=== PATIENT | female | born 1985 | race American Indian/Alaskan Native ===

== ENCOUNTER 2017-03-03 12:53 | Emergency (ER) | payer OTHER ==
[2017-03-03 13:15] VITALS: O2SAT 98
--- NOTE | 2017-03-03 14:36 | C.PDOC ---
History Of Present Illness A 31 year old female presents to the emergency room with complaints of a sore throat and slight dry cough for 2 days. Patient has not taken anything for the symptoms and reports that she may have contracted it from daughter who was sick a few days ago. Patient denies any fever, chills, nausea, vomiting, diarrhea, or any other complaints. Time Seen by Provider: 03/03/17 13:52 Chief Complaint (Nursing): ENT Problem History Per: Patient History/Exam Limitations: no limitations Onset/Duration Of Symptoms: Days (2) Current Symptoms Are (Timing): Still Present Associated Symptoms: Sore Throat, Cough. denies: Fever, Chills, Nausea, Vomiting Ear Symptoms: Bilateral: None Severity: Mild Recent travel outside of the [place]: No Past Medical History Reviewed: Historical Data, Nursing Documentation, Vital Signs Vital Signs: Last Vital Signs Temp 98 F 03/03/17 15:11 Pulse 90 03/03/17 15:11 Resp 20 03/03/17 15:11 BP 140/80 03/03/17 15:11 Pulse Ox 98 03/03/17 14:47 - Medical History PMH: Bronchitis - [facility] Procedures APPLICATION OF SPLINT (08/27/14) TETANUS TOXOID ADMINIST (08/27/14) Family History: States: Unknown Family Hx - Social History Hx Tobacco Use: Yes Hx Alcohol Use: No Hx Substance Use: No - Immunization History Hx Influenza Vaccination: Yes Review Of Systems Constitutional: Negative for: Fever, Chills ENT: Positive for: Throat Pain (Sore throat) Respiratory: Positive for: Cough (Dry cough). Negative for: Shortness of Breath Gastrointestinal: Negative for: Nausea, Vomiting, Diarrhea Physical Exam - Physical Exam Appears: Well, Non-toxic, No Acute Distress Skin: Normal Color, Warm, Dry, No Rash Head: Atraumatic, Normacephalic Eye(s): bilateral: PERRL, EOMI Ear(s): Bilateral: Normal Oral Mucosa: Moist Throat: No Erythema, No Exudate Neck: Normal ROM, No Midline Cervical Tenderness, No Paracervical Tenderness, Supple Cardiovascular: Rhythm Regular Respiratory: Normal Breath Sounds, No Rales, No Rhonchi, No Wheezing Gastrointestinal/Abdominal: Soft, No Tenderness Extremity: Normal ROM, No Tenderness Neurological/Psych: Oriented x3, Normal Speech ED Course And Treatment O2 Sat by Pulse Oximetry: 98 Progress Note: Patient given prescription for medications and instructed to follow up with clinic/PMD within 1-2 days. Disposition Counseled Patient/Family Regarding: Diagnosis, Need For Followup - Disposition Disposition: HOME/ ROUTINE Disposition Time: 14:32 Condition: GOOD Instructions: Pharyngitis (ED) - Clinical Impression Clinical Impression: Sore throat symptom - Scribe Statement The provider has reviewed the documentation as recorded by the Scribeli Reaves All medical record entries made by the Starla were at my direction and personally dictated by me. I have reviewed the chart and agree that the record accurately reflects my personal performance of the history, physical exam, medical decision making, and the department course for this patient. I have also personally directed, reviewed, and agree with the discharge instructions and disposition.
[2017-03-03 15:12] VITALS: BP 140/80; PULSE 90; RESP 20; TEMP 98
== END 2017-03-03 15:11 | disposition home or self-care (01) ==
LOC: C.ER 12:53
DX: R07.0 Pain in throat (principal)

== ENCOUNTER 2017-10-27 12:27 | Emergency (ER) | payer OTHER ==
[2017-10-27 12:34] VITALS: BMI 40.3
[2017-10-27 12:35] VITALS: BP 100/61; PULSE 98; TEMP 98.7; O2SAT 98
--- NOTE | 2017-10-27 12:46 | C.PDOC ---
History Of Present Illness 32 yr old female presents to the ER s/p mechanical fall around 2am last night, reports of left knee pain. Patient states she landed on her knee, the pain is localized over the front of the knee and worse with walking. Denies back pain, leg pain, deformity, weakness or numbness. Time Seen by Provider: 10/27/17 12:40 Chief Complaint (Nursing): Lower Extremity Problem/Injury History Per: Patient History/Exam Limitations: no limitations Onset/Duration Of Symptoms: Sudden Onset (Last night) Current Symptoms Are (Timing): Still Present - Knee Description Of Injury: Fell Past Medical History Reviewed: Historical Data, Nursing Documentation, Vital Signs Vital Signs: Last Vital Signs Temp 98.7 F 10/27/17 12:34 Pulse 98 H 10/27/17 12:34 Resp 18 10/27/17 12:34 BP 100/61 10/27/17 12:34 Pulse Ox 98 10/27/17 12:55 - Medical History PMH: Bronchitis - [facility] Procedures APPLICATION OF SPLINT (08/27/14) TETANUS TOXOID ADMINIST (08/27/14) Family History: States: No Known Family Hx - Social History Hx Tobacco Use: Yes Hx Alcohol Use: No Hx Substance Use: No - Immunization History Hx Tetanus Toxoid Vaccination: No Hx Influenza Vaccination: Yes Hx Pneumococcal Vaccination: No Review Of Systems Except As Marked, All Systems Reviewed And Found Negative. Musculoskeletal: Positive for: Other ((+) left knee pain). Negative for: Back Pain, Leg Pain Neurological: Negative for: Weakness, Numbness Physical Exam - Physical Exam Appears: Well, Non-toxic, No Acute Distress Skin: Normal Color, Warm, No Rash, No Ecchymosis Head: Normacephalic Neck: No Midline Cervical Tenderness, No Paracervical Tenderness, No Step Off Deformity, Supple Extremity: Normal ROM (FAROM with mod discomfort to bending ove rleft knee), Tenderness (diffuse, anterior over Left knee. No palpable deformity, no ecchymoses.), No Calf Tenderness, Capillary Refill (less tahn 2sec to left), No Deformity, No Swelling Neurological/Psych: Oriented x3, Normal Speech, Normal Motor, Normal Sensation, Normal Reflexes ED Course And Treatment O2 Sat by Pulse Oximetry: 98 (RA) Pulse Ox Interpretation: Normal - Other Rad X-Ray - Left Knee X-Ray: Interpreted by Me, Viewed By Me Interpretation: (-) acute fx or disloctaion Progress Note: On re-evaluation, pt is afebrile, hemodynamicaly s table. NOn- toxic. Head: AT/NC. \Neck: Supple, (-) midline tenderness. LLE: exam c/w contusion to left knee. No deformity, no skin chages. FAROM, no neurovascular deficits. Imaging review and appears noraml. Jose wrap applied to Left knee. Crutches provided per pt request with instruction. Pt advised. ref. to f/u with Ortho in 2 -3 days for re-eavl. return if any new changes. Medical Decision Making Medical Decision Making: PLAN: * X-Ray - Left Knee * Tramadol PO Disposition Counseled Patient/Family Regarding: Studies Performed, Diagnosis, Need For Followup, Rx Given - Disposition Referrals: Abhishek Redman MD [Staff Provider] - Disposition: HOME/ ROUTINE Disposition Time: 12:58 Condition: STABLE Additional Instructions: RICE-REST, ICE, COMPRESSION, ELEVATION TAKE PAIN MEDICATION PRESCRIBED FOLLOW UP WITH ORTHOPEDIST IN 2-3 DAYS FOR RE-EVALUATION NEED RETURN TO ED IF ANY WORSENING OR NEW CHANGES. Prescriptions: traMADol [Ultram] 50 mg PO TID #7 tab Instructions: Knee Sprain (ED) Forms: [facility] (Belarusian) - Clinical Impression Clinical Impression: Knee contusion - PA / SUPERVISOR PASTRY / Resident Statement MD/DO has reviewed & agrees with the documentation as recorded. - Scribe Statement The provider has reviewed the documentation as recorded by the Scribe Mera Adamson All medical record entries made by the Scribe were at my direction and personally dictated by me. I have reviewed the chart and agree that the record accurately reflects my personal performance of the history, physical exam, medical decision making, and the department course for this patient. I have also personally directed, reviewed, and agree with the discharge instructions and disposition.
--- NOTE | 2017-10-27 13:22 | RAD ---
PROCEDURE: Left Knee Radiographs. HISTORY: Pain. COMPARISON: None. FINDINGS: BONES: Minimal anterior tibial plateau spurring No fracture. JOINTS: Normal. No osteoarthritis. JOINT EFFUSION: Small effusion suggested OTHER FINDINGS: None. IMPRESSION: Small effusion suggested Minimal anterior tibial plateau spurring
[2017-10-27 13:24] VITALS: RESP 20
== END 2017-10-27 13:23 | disposition home or self-care (01) ==
LOC: C.ER 12:27
DX: S80.02XA Contusion of left knee, initial encounter (principal); W19.XXXA Unspecified fall, initial encounter; Z87.891 Personal history of nicotine dependence

== ENCOUNTER 2018-08-12 18:09 | Emergency (ER) | payer BC, OTHER ==
[2018-08-12 18:10] VITALS: BMI 40.3
[2018-08-12 18:20] VITALS: O2SAT 99
--- NOTE | 2018-08-12 20:30 | C.PDOC ---
Time Seen by Provider: 08/12/18 18:57 Chief Complaint (Nursing): Cough, Cold, Congestion Past Medical History Vital Signs: Last Vital Signs Temp 98.6 F 08/12/18 18:17 Pulse 93 H 08/12/18 18:17 Resp 20 08/12/18 18:17 BP 135/95 H 08/12/18 18:17 Pulse Ox 99 08/12/18 18:17 - Medical History PMH: Bronchitis - [facility] Procedures APPLICATION OF SPLINT (08/27/14) TETANUS TOXOID ADMINIST (08/27/14) Family History: States: Unknown Family Hx - Social History Hx Tobacco Use: Yes Hx Alcohol Use: Yes Hx Substance Use: No - Immunization History Hx Tetanus Toxoid Vaccination: No Hx Influenza Vaccination: No Hx Pneumococcal Vaccination: No ED Course And Treatment ECG: Interpreted By Me ECG Interpretation: Normal Interpretation Of ECG: Vent rate: 89 bpm. NC interval: 188 ms. QRS: 70 ms. QT/Qtc: 366/455 ms O2 Sat by Pulse Oximetry: 99 Disposition - Disposition
--- NOTE | 2018-08-12 21:05 | C.PDOC ---
History Of Present Illness 33 y/o morbidly obese female presents to the ER c/o cough and pleuritic chest pain x 2 days. Pt notes that she has positive sick contact because her daughter is sick. Denies having SOB, fever, and chills. HPI: Influenza Time Seen by Provider: 08/12/18 18:57 Chief Complaint: Cough, Cold, Congestion History Per: Patient Onset/Duration Of Symptoms: Days Symptoms include: cough Risk factors for flu complications: No: adult > 65 years Past Medical History Reviewed: Historical Data, Nursing Documentation, Vital Signs Vital Signs: Last Vital Signs Temp 98.6 F 08/12/18 18:17 Pulse 93 H 08/12/18 18:17 Resp 20 08/12/18 18:17 BP 135/95 H 08/12/18 18:17 Pulse Ox 99 08/12/18 20:30 - Medical History PMH: Bronchitis Surgical History: No Surg Hx - [facility] Procedures APPLICATION OF SPLINT (08/27/14) TETANUS TOXOID ADMINIST (08/27/14) Family History: States: No Known Family Hx - Social History Hx Tobacco Use: Yes Hx Alcohol Use: Yes Hx Substance Use: No - Immunization History Hx Tetanus Toxoid Vaccination: No Hx Influenza Vaccination: No Hx Pneumococcal Vaccination: No Review Of Systems Except As Marked, All Systems Reviewed And Found Negative. Constitutional: Negative for: Fever, Chills Cardiovascular: Positive for: Chest Pain Respiratory: Positive for: Cough. Negative for: Shortness of Breath Physical Exam - Physical Exam Appears: Non-toxic, No Acute Distress, Other (morbidly obese) Skin: Normal Color, Warm, Dry Head: Atraumatic, Normacephalic Eye(s): bilateral: Normal Inspection Ear(s): Bilateral: Normal Nose: Normal Oral Mucosa: Moist Throat: Normal, No Erythema, No Exudate Neck: Supple Chest: Symmetrical Cardiovascular: Rhythm Regular Respiratory: Normal Breath Sounds, No Rales, No Rhonchi, No Wheezing Neurological/Psych: Oriented x3, Normal Speech Medical Decision Making Medical Decision Making: cough and pleuritic cp x 2 days, non toxic,. afebrile, lungs clear, d/c home, with supportive care - ECG Rate: 89 (UT interval: 188 ms. QRS: 70 ms. QT/Qtc: 366/455 ms) O2 Sat by Pulse Oximetry: 99 (RA) Pulse Ox Interpretation: Normal Disposition Counseled Patient/Family Regarding: Studies Performed, Diagnosis, Need For Followup, Rx Given - Disposition Referrals: [facility] [Outside] Disposition: HOME/ ROUTINE Disposition Time: 21:04 Condition: GOOD Additional Instructions: Follow up with your doctor in 2-3 days or Medical clinic.Tylenol for pain when coughing. Return to ER for wors esymptms, Instructions: Upper Respiratory Infection (ED) Forms: [facility] (Luxembourgish), General Discharge Instructions - Clinical Impression Clinical Impression: Upper respiratory infection - PA / COMMAND AND CONTROL SYSTEMS INTEGRATOR / Resident Statement MD/DO has reviewed & agrees with the documentation as recorded. - Scribe Statement The provider has reviewed the documentation as recorded by the Starla Pascual Provider Attestation All medical record entries made by the Starla were at my direction and personally dictated by me. I have reviewed the chart and agree that the record accurately reflects my personal performance of the history, physical exam, medical decision making, and the department course for this patient. I have also personally directed, reviewed, and agree with the discharge instructions and disposition.
[2018-08-12 21:41] VITALS: BP 142/76; PULSE 84; RESP 18; TEMP 98.8
--- NOTE | 2018-08-13 15:45 | CARD ---
APPROVED REPORT Date of service: 08/12/2018 EKG Measurement Heart [id number] <Conclusion> Normal sinus rhythm Normal ECG
== END 2018-08-12 21:32 | disposition home or self-care (01) ==
LOC: C.ER 18:09
DX: J06.9 Acute upper respiratory infection, unspecified (principal)

== ENCOUNTER 2018-11-04 15:26 | Emergency (ER) | payer OTHER, BC ==
[2018-11-04 15:26] VITALS: BMI 40.3
[2018-11-04 15:42] VITALS: RESP 20; O2SAT 100
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
[2018-11-04 16:51] VITALS: BP 140/93; PULSE 93; TEMP 98.8
== END 2018-11-04 16:54 | disposition home or self-care (01) ==
LOC: C.ER 15:26
DX: M54.5 Low back pain (principal); V43.62XA Car passenger injured in collision with other type car in traffic accident, initial encounter; Z72.0 Tobacco use